=== PATIENT | female | born 1955 | race Two or more races ===

== ENCOUNTER → 2016-12-05 | Outpatient (CLI) | payer OTHER ==
[~2016-12-05] MED LIST: ACETAMINOPHEN325 MG PO; ACID CONTROL150 M1 PO; ADVIL200 M2 PO; AGRYLIN0.5 MG DOB; AGRYLIN1 MG PO; ALLERG; ALPRAZOLAM PO; ASPIRIN81 M1 PO; BENZONATATE PO; BUMEX1 MG PO; CARAFATE1 G PO; FIORINAL CAPSUL1 CAP PO; HYCODAN60 ML 5MG/ PO; HYDROXYUREA500 M1 PO; IBUPROFEN IB200 M1 PO; IBUPROFEN PO; IBUPROFEN400 MG PO; KETOCONAZOLE 2%; LASIX20 MG PO; LINZESS145 MCG PO; LISINOPRIL5 MG PO; MONTELUKAST SOD10 MG PO; NORMODYNE100 M1 PO; OMEPRAZOLE40 M1 PO; OXYCODONE-ACET1 EACH PO; PAIN RELIEF325 M1 PO; PLAVIX PO; PRAVASTATIN SOD40 MG PO; PRILOSEC40 MG; PROTONIX40 MG/BLIS PO; SENEXON-S TABL1 EACH PO; TOPROL XL 50 MG50 MG PO; TRIAMCINOLONE AC1 GM; ZITHROMAX1 G/PKT PO; ZYLOPRIM100 MG DOB; ZYRTEC10 M1 PO; ZYRTEC10 M2 PO; [UNRECOGNIZED DRUG - OTHER] PO
--- NOTE | ~2016-12-05 | US5 ---
[facility] A Service of [facility] & [facility] RADIOLOGY TEXT RESULTS PATIENT: ANNA KATHLEEN LOCATION: US : 53 UNIT #: [id number] AGE: [address]: ROSE MARIE Ragland APRN SEX: F ORDER DR: [id number] [facility] [address] [place], [place] [address] [id number] O MR#: [id number] #: [id number] NAME: ANNA KATHLEEN : 1955 SEX: F STUDY DATE/TIME: 12/05/2016 9:28 UNIT: [facility] ROOM: STUDY DESCRIPTION: US Abdominal Complete Attending Physician: Rose Marie Awad Aprn Referring Physician: Rose Marie Awad Aprn Ordering Physician: Rose Marie Awad Aprn Primary Care Physician: Mayank Ellison M.D. MEDICAL IMAGING REPORT This report is preliminary unless electronic signature is present EXAM Complete abdominal ultrasound 12/05/[address] abdomen and pelvis dated June 10, 2014 INDICATIONS 61-year-old female with umbilical hernia. History of Budd-Chiari syndrome. FINDINGS Visualized portions of the pancreas are unremarkable. Aorta is normal in caliber superiorly measuring up to 1.7 cm with its expected internal color-flow waveform. Second measurement of the superior aorta is 1.9 cm in maximal dimension also within normal limits. The mid abdominal aorta measures up to 1.4 cm with expected internal color-flow and waveform. The distal abdominal aorta measures up to 1.4 cm with normal internal color flow and expected waveform. There is no evidence of umbilical hernia on this exam. IVC is patent at the level of the liver with internal expected waveform. There is hepatomegaly with hepatic length of 19.7 cm, likely stable from 2013. There is persistent lobular contour of the liver without convincing evidence of cirrhosis. Main portal vein is patent with expected color-flow and waveform. Right kidney has normal cortical thickness, with length of 8.7 cm. There is color flow in the right kidney. No right hydronephrosis or shadowing calculus. No definite right renal lesion. Common bile duct measures up to 6 mm in caliber. Gallbladder wall thickness is normal. Reverberation artifact is seen superficially within the gallbladder lumen. There is no shadowing cholelithiasis. Second measurement of the common bile duct gives 8 mm. There is no pericholecystic fluid. The left kidney measures 8.9 cm with normal cortical thickness. There is no left hydronephrosis or shadowing calculus. No definite left renal lesion although exam is limited by poor acoustic window at the level of the left kidney. Spleen is not well seen on this exam perhaps due to under penetration. Urinary bladder is not STS. [facility] A Service of [facility] RADIOLOGY TEXT RESULTS PATIENT: ANNA KATHLEEN LOCATION: [facility] : 53 UNIT #: [id number] AGE: [address]: ROSE MARIE Ragland, [employer] SEX: F ORDER DR: darnell. IMPRESSION 1. The spleen is not well seen. 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 Correlation with patient's surgical history is recommended. 2. Stable hepatomegaly with hepatic length of approximately 19.7 cm. There is a lobular contour of the liver without convincing evidence of cirrhosis at this time. 3. Dilatation of the common bile duct measuring up to 8 mm, perhaps minimally increased from [address] of June 2014. This is likely clinically insignificant. There is no intrahepatic biliary dilatation. One could correlate with laboratory values to ensure there are no signs of biliary obstruction. 4. No evidence of umbilical hernia. The patient did have an umbilical hernia containing bowel loops on CT of 2013, performed in June. This may have been surgically repaired or the hernia may be reducible. Clinical correlation recommended. Dictated by... Arie Soler M.D. THIS IS AN ELECTRONICALLY VERIFIED REPORT Arie Soler M.D. at 12/10/2016 9:51 AM Carlos TD: 12/05/2016 16:41 JOB #: [id number] MEDICAL IMAGING REPORT Page 1 of 1 COPY
== END | disposition home or self-care (01) ==
LOC: CGUS 08:22
DX: K42.9 Umbilical hernia without obstruction or gangrene (principal); R16.0 Hepatomegaly, not elsewhere classified; K83.8 Other specified diseases of biliary tract
CPT/HCPCS: 76700